=== PATIENT | female | born 1950 | race Two or more races ===

== ENCOUNTER 2018-07-24 12:00 | Inpatient (IN) | payer OTHER ==
[~2018-07-24] VITALS: Ht 165.1 cm; Wt 81.6 kg
== END 2018-08-02 12:39 | disposition designated cancer center or children's hospital (05) | DRG 332 ==
LOC: O/R 07-31 06:25 → SURH 07-31 06:25
PROVIDERS: Surgery
PROC: 3E0T3BZ Introduction of Anesthetic Agent into Peripheral Nerves and Plexi, Percutaneous Approach (ICD-10-PCS; 2018-07-31)
PROC: 3E0F7GC Introduction of Other Therapeutic Substance into Respiratory Tract, Via Natural or Artificial Opening (ICD-10-PCS; 2018-07-31)
PROC: 4A12X4Z Monitoring of Cardiac Electrical Activity, External Approach (ICD-10-PCS; 2018-07-31)
PROC: 0DBP4ZZ Excision of Rectum, Percutaneous Endoscopic Approach (ICD-10-PCS; principal; 2018-07-31 07:00)
PROC: B246ZZZ Ultrasonography of Right and Left Heart (ICD-10-PCS; 2018-08-02)
DX: D12.8 Benign neoplasm of rectum (principal); I21.4 Non-ST elevation (NSTEMI) myocardial infarction; J45.30 Mild persistent asthma, uncomplicated; I11.9 Hypertensive heart disease without heart failure; I25.10 Atherosclerotic heart disease of native coronary artery without angina pectoris; Z91.040 Latex allergy status; F32.9 Major depressive disorder, single episode, unspecified; I87.2 Venous insufficiency (chronic) (peripheral); E66.8 Other obesity; Z86.010 Personal history of colon polyps; D64.89 Other specified anemias

== ENCOUNTER 2020-05-06 07:16 | Day surgery (SDC) | payer OTHER | END 2020-05-06 12:50 | disposition home or self-care (01) | LOC: AMB-ENDOS 07:16 → ADM 14:00 → AMB-ENDOS 14:00 | PROVIDERS: ATTEND Surgery | DX: D12.3 Benign neoplasm of transverse colon (principal); K64.8 Other hemorrhoids ==